=== PATIENT | female | born 1990 | race African-American/Black ===

== ENCOUNTER 2023-01-14 02:56 | Emergency (ER) | payer BC ==
[2023-01-14 03:47] LABS: Bilirubin Negative (Negative); Blood, Urine Negative (Negative); Clarity Turbid (Clear); Glucose, Urine (Dipstick) Normal (Negative); Ketone, Urine Negative (Negative); Leukocyte 500 Leu/uL (Negative); Nitrite Negative (Negative); Protein, Urine (Dipstick) Negative (Neg-Trace); Specific Gravity, Urine 1.011 (1.002-1.036); Urobilinogen Normal mg/dL (Less than 2); pH, Urine 6.5 (5.0-9.0)
[2023-01-14 03:49] LABS: Bacteria/HPF 1+ HPF (None Seen); Pregnancy Test - Urine (BHCG) Negative (Negative); Pregu Control Background? CLEAR/WHITE (CLR/WHITE); Pregu Control Bar Appear? YES (CONTROL BAR); Specific Gravity 1.011 (1.002-1.036)
[2023-01-14] MEDS ORDERED: cefTRIAXone (ROCEPHIN) 500 MG VIAL ONE (04:35)
[2023-01-14] MEDS ORDERED: Lidocaine 1% MPF 2 ML VIAL ONE (04:35)
[2023-01-14 15:41] LABS: Chlam.trachomatis by PCR,Urine Not Detected (NotDetected); GC N.gonorrhoeae PCR,UrineVOID Not Detected (NotDetected)
== END 2023-01-14 06:14 | disposition home or self-care (01) ==
LOC: ERS 02:56
DX: N72 Inflammatory disease of cervix uteri (principal)
CPT/HCPCS: 81003; 81015; 81025; 87086; 87480; 87491; 87510; 87591; 87660; 87661; 96372; 99283; J0696